=== PATIENT | female | born 1930 | race Caucasian/White ===

== ENCOUNTER → 2016-10-09 | Outpatient (REF) | payer MEDICARE | LOC: M SFHCCLAY 14:30 | PROVIDERS: ATTEND Family Medicine | DX: M81.0 Age-related osteoporosis without current pathological fracture (principal); I10 Essential (primary) hypertension ==

== ENCOUNTER → 2016-10-12 | Outpatient (REF) | payer MEDICARE ==
[2016-10-12 11:58] LABS: MEAN CORPUSCULAR HEMOGLOBIN 33.1 pg (27.0-33.0); MEAN CORPUSCULAR HGB CONC 33.5 g/dl (32.0-36.5); MEAN CORPUSCULAR VOLUME 98.6 fl (80.0-96.0); RED CELL DISTRIBUTION WIDTH 12.8 % (11.5-14.5); WHITE BLOOD COUNT 6.4 K/mm3 (4.0-10.0)
[2016-10-12 12:12] LABS: CREATININE FOR GFR 1.41 MG/DL (0.55-1.02); GLOMERULAR FILTRATION RATE 37.7 (>32); PHOSPHORUS LEVEL 3.4 MG/DL (2.5-4.9)
== END ==
LOC: M SFHCCLAY 08:23
PROVIDERS: ATTEND Family Medicine
DX: M81.0 Age-related osteoporosis without current pathological fracture (principal); I10 Essential (primary) hypertension

== ENCOUNTER → 2016-12-29 | Outpatient (REF) | payer MEDICARE | LOC: M LAB REF 17:09 | PROVIDERS: ATTEND Internal Medicine Nephrology | DX: N18.3 Chronic kidney disease, stage 3 (moderate) (principal) ==

== ENCOUNTER → 2017-04-16 | Outpatient (CLI) | payer MEDICARE ==
--- NOTE | 2017-04-16 15:52 | REP ---
Left shoulder three views: Comparison is 03/07/2016. 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 There is demineralization. There is no fracture or dislocation. No calcifications or foreign bodies. Signed by Anderson Otto MD 04/16/2017 03:43 P
== END ==
LOC: M CLY 14:13
PROVIDERS: ATTEND Family Medicine
DX: M75.122 Complete rotator cuff tear or rupture of left shoulder, not specified as traumatic (principal); M19.012 Primary osteoarthritis, left shoulder; M81.0 Age-related osteoporosis without current pathological fracture
CPT/HCPCS: 73030; G0463

== ENCOUNTER → 2017-04-22 | Outpatient (CLI) | payer MEDICARE ==
--- NOTE | 2017-04-22 12:03 | REP ---
MRI OF THE LEFT SHOULDER: TECHNIQUE: Axial T2 fat sat, gradient echo, sagittal oblique T2 fat sat, coronal oblique T1, T2 fat sat. There is a partial full thickness tear of the supraspinatus tendon with no retraction. Other rotator cuff tendons are intact. There are moderate hypertrophic degenerative changes of acromioclavicular joint with mild downward sloping of the acromion. There is a type 1 acromion. The biceps tendon is within the bicipital groove without tenosynovitis. There is no abnormal signal in the deltoid muscle. There is no Hill-Sach's deformity. There is fraying at the biceps labral complex with an underlying SLAP tear. 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 There is moderate spurring of the humeral head with slight flattening at the joint surface. Small amount of joint fluid is seen at the glenohumeral joint. There is a large amount of fluid in the subacromial subdeltoid bursae, possibly due to the supraspinatus tendon tear, but I cannot exclude bursitis in these regions. IMPRESSION: Full thickness partial tear supraspinatus tendon. Moderate hypertropic degenerative changes acromioclavicular joint. There is fraying of the biceps labral complex with an underlying SLAP tear. Moderate to severe arthritic changes are seen at the glenohumeral joint as discussed above with associated subchondral marrow edema. Mild joint effusion of the glenohumeral joint. Large amount of fluid in the subacromial, subdeltoid bursae, possibly due to the rotator cuff tear, but I cannot exclude bursitis. Signed by Anderson Maguire MD 04/22/2017 04:54 P
== END ==
LOC: M RAD 09:34
PROVIDERS: ATTEND Family Medicine
DX: M75.122 Complete rotator cuff tear or rupture of left shoulder, not specified as traumatic (principal)

== ENCOUNTER 2017-12-25 03:15 | Inpatient (IN) | payer MEDICARE ==
[2017-12-25] MEDS ORDERED: MORPHINE 4 MG/ML 1ML VIAL/SYRINGE (J2270) IV (03:45)
[2017-12-25] MEDS ORDERED: ONDANSETRON 4MG/2ML VIAL (J2405) IV (03:45)
[2017-12-25] MEDS: NS 1,000 ML IV ×3 (04:27→22:38)
[2017-12-25] MEDS: PANTOPRAZOLE 40MG INJ (PROTONIX) (C9113) IV (04:27)
[2017-12-25 05:56] LABS: BASO % 0.3 % (0.0-1.0); EOS % 0.6 % (0.0-3.0); HEMATOCRIT 38.6 % (36.0-47.0); IMMATURE GRANULOCYTE % 0.3 % (0-3.0); LYMPH % 15.8 % (24.0-44.0); MEAN CORPUSCULAR HEMOGLOBIN 32.4 pg (27.0-33.0); MEAN CORPUSCULAR HGB CONC 33.7 g/dl (32.0-36.5); MEAN CORPUSCULAR VOLUME 96.3 fl (80.0-96.0); MONO % 16.4 % (0.0-5.0); NEUTROPHILS # 4.1 10^3/uL (1.8-7.7); NEUTROPHILS % 66.6 % (36.0-66.0); PLATELET COUNT, AUTOMATED 133 10^3/uL (150-450); RED BLOOD COUNT 4.01 10^6/uL (4.00-5.40); RED CELL DISTRIBUTION WIDTH 12.6 % (11.5-14.5); WHITE BLOOD COUNT 6.2 10^3/uL (4.0-10.0)
[2017-12-25 06:23] LABS: ALBUMIN 2.7 GM/DL (3.2-5.2); ALBUMIN/GLOBULIN RATIO 0.73 (1.00-1.93); ALKALINE PHOSPHATASE 44 U/L (45-117); ALT/SGPT 15 U/L (12-78); ANION GAP 10 MEQ/L (8-16); AST/SGOT 18 U/L (7-37); BILIRUBIN,TOTAL 0.6 MG/DL (0.2-1.0); BLOOD UREA NITROGEN 63 MG/DL (7-18); CALCIUM LEVEL 7.6 MG/DL (8.8-10.2); CARBON DIOXIDE LEVEL 23 MEQ/L (21-32); CHLORIDE LEVEL 109 MEQ/L (98-107); CREATININE FOR GFR 2.95 MG/DL (0.55-1.30); GLOMERULAR FILTRATION RATE 16.1 (>32); GLUCOSE, FASTING 79 MG/DL (70-100); POTASSIUM SERUM 3.4 MEQ/L (3.5-5.1); SODIUM LEVEL 142 MEQ/L (136-145); TOTAL PROTEIN 6.4 GM/DL (6.4-8.2)
[2017-12-25] MEDS: HEPARIN SOD (PORCINE) 5000 UNITS/ML VIAL SC ×3 (06:34→21:11)
[2017-12-25] MEDS: metroNIDAZOLE 500 MG in APPROPRIATE DILUENT 1 EA IV ×3 (09:02→23:58)
[2017-12-25] MEDS: ATENOLOL 50 MG TAB PO (09:04)
[2017-12-25] MEDS: LOSARTAN 50 MG TAB PO (09:05)
[2017-12-25 10:32] LABS: APPEARANCE, URINE CLEAR (CLEAR); BACTERIA, URINE AUTO 1+ (NEGATIVE); BILIRUBIN, URINE AUTO NEGATIVE (NEGATIVE); BLOOD, URINE BLOOD NEGATIVE (NEGATIVE); COLOR, URINE YELLOW (YELLOW); GLUCOSE, URINE (UA) AUTO NEGATIVE (NEGATIVE); KETONE, URINE AUTO NEGATIVE (NEGATIVE); LEUKOCYTE ESTERASE, URINE AUTO TRACE (NEGATIVE); MUCUS, URINE SMALL (NEGATIVE); NITRITE, URINE AUTO NEGATIVE (NEGATIVE); PROTEIN, URINE AUTO NEGATIVE (NEGATIVE); RBC, URINE AUTO 1 /HPF (0-3); SPECIFIC GRAVITY URINE AUTO 1.012 (1.002-1.035); SQUAMOUS EPITHELIAL CELL UR AU 0 /HPF (0-6); UROBILINOGEN, URINE AUTO 0.2 mg/dL (0.0-2.0); WBC, URINE AUTO 1 /HPF (0-3)
[2017-12-25] MEDS: NITAZOXANIDE 500 MG TAB (ALINIA) PO (21:11)
[2017-12-26] MEDS: CIPROFLOXACIN 400 MG in APPROPRIATE DILUENT 1 EA IV (01:22)
[2017-12-26] MEDS: PANTOPRAZOLE 40MG INJ (PROTONIX) (C9113) IV (03:34)
[2017-12-26 05:56] LABS: BASO % 0.7 % (0.0-1.0); EOS # 0.2 10^3/uL (0.0-0.50); EOS % 4.5 % (0.0-3.0); HEMATOCRIT 33.3 % (36.0-47.0); HEMOGLOBIN 11.1 g/dl (12.0-15.5); IMMATURE GRANULOCYTE % 0.2 % (0-3.0); LYMPH % 23.4 % (24.0-44.0); MEAN CORPUSCULAR HEMOGLOBIN 32.1 pg (27.0-33.0); MEAN CORPUSCULAR HGB CONC 33.3 g/dl (32.0-36.5); MEAN CORPUSCULAR VOLUME 96.2 fl (80.0-96.0); MONO # 0.7 10^3/uL (0.0-0.8); MONO % 15.5 % (0.0-5.0); NEUTROPHILS # 2.5 10^3/uL (1.8-7.7); NEUTROPHILS % 55.7 % (36.0-66.0); PLATELET COUNT, AUTOMATED 121 10^3/uL (150-450); RED BLOOD COUNT 3.46 10^6/uL (4.00-5.40); RED CELL DISTRIBUTION WIDTH 12.7 % (11.5-14.5); WHITE BLOOD COUNT 4.5 10^3/uL (4.0-10.0)
[2017-12-26 06:22] LABS: ANION GAP 7 MEQ/L (8-16); BLOOD UREA NITROGEN 49 MG/DL (7-18); CALCIUM LEVEL 7.4 MG/DL (8.8-10.2); CARBON DIOXIDE LEVEL 23 MEQ/L (21-32); CHLORIDE LEVEL 115 MEQ/L (98-107); CREATININE FOR GFR 2.32 MG/DL (0.55-1.30); GLOMERULAR FILTRATION RATE 21.2 (>32); GLUCOSE, FASTING 79 MG/DL (70-100); POTASSIUM SERUM 3.8 MEQ/L (3.5-5.1); SODIUM LEVEL 145 MEQ/L (136-145)
[2017-12-26] MEDS: HEPARIN SOD (PORCINE) 5000 UNITS/ML VIAL SC ×4 (06:43→22:12)
[2017-12-26] MEDS: metroNIDAZOLE 500 MG in APPROPRIATE DILUENT 1 EA IV (08:28)
[2017-12-26] MEDS: SIMVASTATIN 20 MG TAB PO (08:29)
[2017-12-26] MEDS: ATENOLOL 50 MG TAB PO (08:29)
[2017-12-26] MEDS: NITAZOXANIDE 500 MG TAB (ALINIA) PO ×2 (08:30→22:03)
[2017-12-26] MEDS: NS 1,000 ML IV ×3 (10:04→22:03)
[2017-12-26] MEDS ORDERED: ACETAMINOPHEN TAB 650MG DOSE (2X325MG) PO (17:45)
[2017-12-27] MEDS: PANTOPRAZOLE 40MG INJ (PROTONIX) (C9113) IV (02:34)
[2017-12-27] MEDS: NS 1,000 ML IV ×2 (02:34→11:16)
[2017-12-27] MEDS: SIMVASTATIN 20 MG TAB PO (09:33)
[2017-12-27] MEDS: ATENOLOL 50 MG TAB PO (09:34)
[2017-12-27] MEDS: NITAZOXANIDE 500 MG TAB (ALINIA) PO ×2 (09:34→20:30)
[2017-12-27 12:03] LABS: ALBUMIN 2.6 GM/DL (3.2-5.2); ANION GAP 8 MEQ/L (8-16); BLOOD UREA NITROGEN 28 MG/DL (7-18); CALCIUM LEVEL 7.5 MG/DL (8.8-10.2); CARBON DIOXIDE LEVEL 23 MEQ/L (21-32); CHLORIDE LEVEL 119 MEQ/L (98-107); CREATININE FOR GFR 1.62 MG/DL (0.55-1.30); GLOMERULAR FILTRATION RATE 32.1 (>32); GLUCOSE, FASTING 93 MG/DL (70-100); PHOSPHORUS LEVEL 2.4 MG/DL (2.5-4.9); POTASSIUM SERUM 3.6 MEQ/L (3.5-5.1); SODIUM LEVEL 150 MEQ/L (136-145)
[2017-12-27] MEDS: HEPARIN SOD (PORCINE) 5000 UNITS/ML VIAL SC ×2 (14:40→20:32)
[2017-12-27] MEDS: amLODIPine 5 MG TAB PO (18:48)
[2017-12-27] MEDS: KCL 20MEQ IN 0.45NS 1000ML 1,000 ML IV (20:31)
[2017-12-28] MEDS: PANTOPRAZOLE 40MG INJ (PROTONIX) (C9113) IV (03:17)
[2017-12-28] MEDS: KCL 20MEQ IN 0.45NS 1000ML 1,000 ML IV (05:34)
[2017-12-28] MEDS: HEPARIN SOD (PORCINE) 5000 UNITS/ML VIAL SC (05:34)
[2017-12-28 06:54] LABS: HEMATOCRIT 32.6 % (36.0-47.0); HEMOGLOBIN 10.9 g/dl (12.0-15.5); MEAN CORPUSCULAR HEMOGLOBIN 32.8 pg (27.0-33.0); MEAN CORPUSCULAR HGB CONC 33.4 g/dl (32.0-36.5); MEAN CORPUSCULAR VOLUME 98.2 fl (80.0-96.0); PLATELET COUNT, AUTOMATED 152 10^3/uL (150-450); RED BLOOD COUNT 3.32 10^6/uL (4.00-5.40); RED CELL DISTRIBUTION WIDTH 13.1 % (11.5-14.5); WHITE BLOOD COUNT 5.7 10^3/uL (4.0-10.0)
[2017-12-28 07:23] LABS: ANION GAP 8 MEQ/L (8-16); BLOOD UREA NITROGEN 20 MG/DL (7-18); CALCIUM LEVEL 7.6 MG/DL (8.8-10.2); CARBON DIOXIDE LEVEL 22 MEQ/L (21-32); CHLORIDE LEVEL 118 MEQ/L (98-107); CREATININE FOR GFR 1.31 MG/DL (0.55-1.30); GLUCOSE, FASTING 85 MG/DL (70-100); POTASSIUM SERUM 4.1 MEQ/L (3.5-5.1); SODIUM LEVEL 148 MEQ/L (136-145)
[2017-12-28] MEDS: NITAZOXANIDE 500 MG TAB (ALINIA) PO (08:21)
[2017-12-28] MEDS: SIMVASTATIN 20 MG TAB PO (08:21)
[2017-12-28] MEDS: ATENOLOL 50 MG TAB PO (08:22)
== END 2017-12-28 10:15 | disposition home or self-care (01) | DRG 372 ==
LOC: M PCU 03:15 → M MS4PR 12-27 18:00
DX: A07.2 Cryptosporidiosis (principal); K57.92 Diverticulitis of intestine, part unspecified, without perforation or abscess without bleeding; N17.9 Acute kidney failure, unspecified; K56.600 Partial intestinal obstruction, unspecified as to cause; I12.9 Hypertensive chronic kidney disease with stage 1 through stage 4 chronic kidney disease, or unspecified chronic kidney disease; E78.5 Hyperlipidemia, unspecified; H40.9 Unspecified glaucoma; N18.3 Chronic kidney disease, stage 3 (moderate); H35.30 Unspecified macular degeneration; H91.93 Unspecified hearing loss, bilateral; Z90.710 Acquired absence of both cervix and uterus; Z79.899 Other long term (current) drug therapy

== ENCOUNTER → 2018-10-24 | Outpatient (REF) | payer MEDICARE ==
[~2018-10-24] MED LIST: ATEN100T PO; HYDR25TAB PO; LOSA100T50 PO; SIMV20TA2 PO; VITA50005 PO
[2018-10-24 12:22] LABS: CHOLESTEROL RISK RATIO 2.52 (<5)
== END ==
LOC: M SFHCCLAY 07:35
PROVIDERS: ATTEND Family Medicine
DX: E78.00 Pure hypercholesterolemia, unspecified (principal)

== ENCOUNTER → 2019-09-12 | Outpatient (REF) | payer MEDICARE ==
[~2019-09-12] MED LIST changes: -SIMV20TA2 PO; +SIMV20TA22 PO
[2019-09-12 17:05] LABS: HEMATOCRIT 40.2 % (36.0-47.0); HEMOGLOBIN 13.1 g/dl (12.0-15.5); MEAN CORPUSCULAR HEMOGLOBIN 32.8 pg (27.0-33.0); MEAN CORPUSCULAR HGB CONC 32.6 g/dl (32.0-36.5); MEAN CORPUSCULAR VOLUME 100.5 fl (80.0-96.0); PLATELET COUNT, AUTOMATED 167 10^3/uL (150-450); WHITE BLOOD COUNT 6.9 10^3/uL (4.0-10.0)
[2019-09-12 17:16] LABS: ALBUMIN 2.7 GM/DL (3.2-5.2); BILIRUBIN,TOTAL 0.7 MG/DL (0.2-1.0); CALCIUM LEVEL 8.1 MG/DL (8.8-10.2); CREATININE FOR GFR 2.01 MG/DL (0.55-1.30); GLOMERULAR FILTRATION RATE 24.9 (>32); POTASSIUM SERUM 4.1 MEQ/L (3.5-5.1); THYROID STIMULATING HORMONE 1.94 uIU/ML (0.358-3.740); TOTAL PROTEIN 6.7 GM/DL (6.4-8.2)
== END ==
LOC: M SFHCCLAY 11:36
PROVIDERS: ATTEND Family Medicine
DX: R53.83 Other fatigue (principal)
CPT/HCPCS: 80053; 84443; 85027; G0463

== ENCOUNTER → 2019-09-27 | Outpatient (REF) | payer MEDICARE ==
[2019-09-27 12:03] LABS: ALBUMIN 2.8 GM/DL (3.2-5.2); CALCIUM LEVEL 8.8 MG/DL (8.8-10.2); CREATININE FOR GFR 1.46 MG/DL (0.55-1.30); POTASSIUM SERUM 4.1 MEQ/L (3.5-5.1)
== END ==
LOC: M SFHCCLAY 08:22
PROVIDERS: ATTEND Family Medicine
DX: N18.3 Chronic kidney disease, stage 3 (moderate) (principal)

== ENCOUNTER → 2020-04-25 | Outpatient (REF) | payer MEDICARE ==
[2020-04-25 17:29] LABS: BACTERIA, URINE AUTO 1+ (NEGATIVE); MUCUS, URINE SMALL (NEGATIVE); RBC, URINE AUTO 2 /HPF (0-3); SQUAMOUS EPITHELIAL CELL UR AU 6 /HPF (0-6); WBC, URINE AUTO 39 /HPF (0-3)
== END ==
LOC: M LAB REF 17:02
PROVIDERS: ATTEND Internal Medicine Nephrology
DX: I12.9 Hypertensive chronic kidney disease with stage 1 through stage 4 chronic kidney disease, or unspecified chronic kidney disease (principal); N18.32 Chronic kidney disease, stage 3b; R31.21 Asymptomatic microscopic hematuria

== ENCOUNTER → 2020-07-03 | Outpatient (REF) | payer MEDICARE ==
[~2020-07-03] MED LIST changes: +HYDR-3490 PO; -HYDR25TAB PO
[2020-07-03 16:27] LABS: CALCIUM LEVEL 9.5 MG/DL (8.8-10.2); CREATININE FOR GFR 1.67 MG/DL (0.55-1.30); FREE T4 0.97 NG/DL (0.76-1.46); GLOMERULAR FILTRATION RATE 30.8 (>32); POTASSIUM SERUM 4.4 MEQ/L (3.5-5.1); THYROID STIMULATING HORMONE 2.66 uIU/ML (0.358-3.740)
== END ==
LOC: M SFHCCLAY 13:41
PROVIDERS: ATTEND Family Medicine
DX: L65.0 Telogen effluvium (principal); I10 Essential (primary) hypertension
CPT/HCPCS: 80048; 84439; 84443; G0463

== ENCOUNTER → 2021-04-03 | Outpatient (REF) | payer MEDICARE | LOC: M LAB REF 17:51 | PROVIDERS: ATTEND Internal Medicine Nephrology | DX: E83.42 Hypomagnesemia (principal) ==